=== PATIENT | female | born 1990 | race African-American/Black ===

== ENCOUNTER 2017-10-06 14:57 | Emergency (ER) | payer SELFPAY ==
[~2017-10-06] VITALS: Ht 160 cm; Wt 54.4 kg
[2017-10-06 14:57] VITALS: BP 115/68
[2017-10-06] MEDS: HYDROCODONE/APAP 5/325MG 1 EACH TABLET PO ONE (15:30)
[2017-10-06] MEDS ORDERED: HYDROCODONE/APAP 5/325MG 1 EACH TABLET ONE (15:49)
== END 2017-10-06 16:57 | disposition home or self-care (01) ==
LOC: ER 15:03
DX: N75.1 Abscess of Bartholin's gland (principal); N76.4 Abscess of vulva
CPT/HCPCS: 36415; 84703-TC; 87070-TC; A4606; A6402; Z7610